=== PATIENT | male | born 1980 | race Caucasian/White ===

== ENCOUNTER 2017-11-19 13:38 | Emergency (ER) | payer OTHER ==
[~2017-11-19] VITALS: Ht 172.7 cm; Wt 118.0 kg
[~2017-11-19 13:38] MED LIST: ALBUTEROL17 G1 IH; ATARAX,VISTARIL25 MG PO; MEN'S MULTI-VI1 EACH PO; MOBIC15 MG PO; PRINZIDE 10-121 EACH PO; PROAIR HFA8.5 GM IH; SINGULAIR10 MG PO; TOPAMAX200 MG PO
[2017-11-19] MEDS ORDERED: MOTRIN800 MG PO (16:19)
[2017-11-19] MEDS ORDERED: SKELAXIN800 MG PO (16:19)
[2017-11-19 16:35] VITALS: BP 164/101
== END 2017-11-19 16:45 | disposition home or self-care (01) ==
LOC: EME 13:38
DX: S06.0X0A Concussion without loss of consciousness, initial encounter (principal); W11.XXXA Fall on and from ladder, initial encounter; W20.8XXA Other cause of strike by thrown, projected or falling object, initial encounter; Y99.0 Civilian activity done for income or pay; G43.909 Migraine, unspecified, not intractable, without status migrainosus; I10 Essential (primary) hypertension; J45.909 Unspecified asthma, uncomplicated; F17.200 Nicotine dependence, unspecified, uncomplicated
CPT/HCPCS: 70450; 72125; 99281; 99284; J0780; J1200; J1885; J7120